=== PATIENT | female | born 1980 | race Caucasian/White ===

== ENCOUNTER 2018-07-14 14:09 | Outpatient (CLI) | payer BC ==
--- NOTE | 2018-07-14 15:55 | RAD ---
TWO VIEW CHEST: Comparison: 01-23-17 Indication: Cough. FINDINGS: Lungs are clear. No effusion or pneumothorax. Cardiac silhouette is normal in size. IMPRESSION: No focal consolidation. POS: [facility]
== END 2018-07-14 14:10 | disposition home or self-care (01) ==
LOC: SCSRAD 14:09
PROVIDERS: ATTEND Family Medicine
DX: J20.9 Acute bronchitis, unspecified (principal)
CPT/HCPCS: 71046

== ENCOUNTER 2018-11-17 15:25 | Outpatient (CLI) | payer BC ==
--- NOTE | 2018-11-17 17:17 | MRI ---
[facility] lumbar spine noncontrast: DATE: 11/17/2018 HISTORY: Intervertebral disc disorder with radiculopathy. Low back pain, x10 years COMPARISON: None FINDINGS: Appropriate T1 marrow signal intensity of the lumbar vertebra. Lumbar spine vertebral body height is maintained. No fracture Type II Modic changes at L4-L5 and L5-S1. No centimeters STIR hyperintensity to suggest vertebral body edema or ligamentous injury Appropriate signal intensity of the visualized solid organs Symmetric signal intensity of the paraspinal muscles Conus medullaris terminates at the upper aspect of L1 T12-L1:No significant central canal stenosis or neural foraminal narrowing L1-2:No significant central canal stenosis or neural foraminal narrowing L2-3:No significant central canal stenosis or neural foraminal narrowing L3-4:Mild loss of disc space height. Minimal central disc bulge. No significant central canal stenosi s. Neural foramina are patent. L4-5:Mild to moderate loss of disc space height. Central/right subclavicular disc protrusion with sli ght superior disc extrusion. Mass effect and partial obscuration of the traversing right L5 nerve ainsley t. No significant mass effect upon the thecal sac or left subarticular zone. Mild to moderate right f oraminal narrowing. Left neural foramen is patent L5-S1: No significant central canal stenosis. Right neural foramen is patent. Moderate left foraminal narrowing. IMPRESSION: 1. Degenerative disc disease at L4-L5 as described above. Mass effect and partial obscuration of the traversing right L5 nerve root secondary to disc material in the right subarticular zone. 2. Degenerative disc disease at L3-L4 without significant central canal stenosis or neural foraminal narrowing.
== END 2018-11-17 15:26 | disposition home or self-care (01) ==
LOC: TBSIIMAG 15:25
PROVIDERS: ATTEND Specialist
DX: M51.16 Intervertebral disc disorders with radiculopathy, lumbar region (principal)
CPT/HCPCS: 72148

== ENCOUNTER 2019-02-09 13:58 | Outpatient (CLI) | payer BC ==
--- NOTE | 2019-02-09 14:21 | RAD ---
LUMBAR SPINE SERIES WITH FLEXION AND EXTENSION 4 VIEWS: Date: 02/09/19 HISTORY: Back pain getting progressively worse. Radiculopathy. FINDINGS: The vertebral bodies are normal in height. There is mild to moderate disc narrowing at L4-5. No spond ylolisthesis or abnormal motion in flexion or extension. IMPRESSION: Moderate disc narrowing at L4-5. POS: [facility]
== END 2019-02-09 13:59 | disposition home or self-care (01) ==
LOC: TBSIIMAG 13:58
PROVIDERS: ATTEND Surgery
DX: M54.16 Radiculopathy, lumbar region (principal); M48.061 Spinal stenosis, lumbar region without neurogenic claudication
CPT/HCPCS: 72110

== ENCOUNTER 2019-02-25 11:58 | Outpatient (CLI) | payer BC ==
--- NOTE | 2019-02-25 15:29 | MMO ---
Bilateral MAMMO Bilat Screen [facility]. CLINICAL HISTORY: Patient is 38 years old and is seen for screening. The patient has the following family history of breast cancer: paternal grandmother, malignant (generic). The patient has no personal history of cancer. VIEWS: The views performed were: bilateral craniocaudal with tomosynthesis; bilateral mediolateral oblique with tomosynthesis; and left exaggerated craniocaudal. FILMS COMPARED: The present examination has been compared to a prior imaging study performed at [facility] on 02/28/2017. MAMMOGRAM FINDINGS: There are scattered fibroglandular densities. There are no suspicious masses, suspicious calcifications, or new areas of architectural distortion. IMPRESSION: THERE IS NO MAMMOGRAPHIC EVIDENCE OF MALIGNANCY. A ROUTINE FOLLOW-UP MAMMOGRAM IN 1 YEAR IS RECOMMENDED. THE RESULTS OF THIS EXAM WERE SENT TO THE PATIENT. ACR BI-RADS Category 1 - Negative MAMMOGRAPHY NOTE: 1. A negative mammogram report should not delay a biopsy if a dominant of clinically suspicious mass is present. 2. Approximately 10% to 15% of breast cancers are not detected by mammography. 3. Adenosis and dense breasts may obscure an underlying neoplasm. Reported by: CECILIO JOHNSON MD Electonically Signed: [id number]
== END 2019-02-25 11:59 | disposition home or self-care (01) ==
LOC: BICMAMMO 11:58
PROVIDERS: ATTEND Family Medicine
DX: Z12.31 Encounter for screening mammogram for malignant neoplasm of breast (principal); Z80.3 Family history of malignant neoplasm of breast
CPT/HCPCS: 77063; 77067

== ENCOUNTER 2019-03-13 06:09 | Day surgery (SDC) | payer BC ==
[2019-03-12 08:20] VITALS: BMI 38.0
[2019-03-13] MEDS ORDERED: Sodium Chloride 0.9% 10 ML ONE (06:25)
[2019-03-13] MEDS ORDERED: Thrombin 5000 UNITS/5 ML VIAL ONE (06:25)
[2019-03-13 06:53] LABS: #Basophils 0.1 thou/uL (0.0-0.2); #Eosinphils 0.1 thou/uL (0.0-0.7); #Lymphocytes 2.9 thou/uL (1.20-3.40); #Monocytes 0.5 thou/uL (0.11-0.59); #Neutrophils 6.1 thou/uL (1.40-6.50); %Basophils 0.7 % (0.0-1.0); %Eosinophils 0.7 % (0.0-10.0); %Lymphocytes 29.9 % (21.0-51.0); %Monocytes 5.7 % (0.0-10.0); %Neutrophils 63.1 % (42.0-75.0); Hemoglobin 14.9 g/dL (12.0-16.0); Mean Corpuscular Hemoglobin 31.1 pg (27.0-31.0); Mean Corpuscular Volume 91.5 fL (78.0-98.0); Mean Platelet Volume 7.3 fL (7.4-10.4); Platelet Count 304 thou/uL (130-400); RBC Distribution Width 11.9 % (11.5-14.5); White Blood Cell (WBC) Count 9.6 thou/uL (4.8-10.8)
[2019-03-13 07:00] LABS: PTT 30.1 SEC (22.9-36.1); Prothrombin Time 12.8 SEC (12.0-14.7)
[2019-03-13] MEDS ORDERED: ceFAZolin Sodium (SDC) 2 GM/100 ML BAG ONE ×2 (07:01→07:24)
[2019-03-13] MEDS ORDERED: Midazolam HCl 2 mg/2 ml Vial ONE (07:02)
[2019-03-13 07:15] LABS: Anion Gap 11 mmol/L (10-20); BUN (Urea Nitrogen) 15 mg/dL (7.0-18.7); Calc. Creatinine Clearance 159 mL/min (70-130); Calcium 9.4 mg/dL (7.8-10.44); Carbon Dioxide 25 mmol/L (22-29); Chloride 105 mmol/L (98-107); Estimated GFR-MDRD 70; Glucose 95 mg/dL (70-105); Potassium 4.4 mmol/L (3.5-5.1); Sodium 137 mmol/L (136-145)
[2019-03-13] MEDS ORDERED: Fentanyl 100 MCG/2 ML VIAL ONE ×4 (07:25→10:29)
[2019-03-13] MEDS ORDERED: Meperidine HCl/PF 25 MG/ML VIAL SLOW IVP PRN (09:50)
[2019-03-13] MEDS ORDERED: Ondansetron HCl/PF 4 MG/2 ML Vial IVP PRN (09:50)
[2019-03-13] MEDS ORDERED: PACU-Morphine 4MG/ML VIAL SLOW IVP PRN (09:50)
[2019-03-13] MEDS ORDERED: Promethazine HCl 25 MG/ML VIAL SLOW IVP PRN (09:50)
[2019-03-13] MEDS ORDERED: Morphine Sulfate 2 MG/ML SYRINGE SLOW IVP PRN (09:50)
[2019-03-13] MEDS ORDERED: Promethazine HCl 25 MG/ML VIAL IM PRN (09:50)
[2019-03-13] MEDS ORDERED: HYDROmorphone 2 MG/ML VIAL SLOW IVP PRN (09:50)
[2019-03-13] MEDS ORDERED: Ketorolac Tromethamine 30 MG/ML VIAL IVP PRN (09:50)
[2019-03-13] MEDS ORDERED: HYDROmorphone 2 MG/ML VIAL ONE (10:11)
[2019-03-13] MEDS ORDERED: Acetaminophen/Codeine 30-300mg Tablet PO PRN ×2 (10:12→19:41)
[2019-03-13] MEDS ORDERED: Mag-Al 1200 mg/1200 mg/30 ML UDCUP PO PRN (10:12)
[2019-03-13] MEDS ORDERED: Acetaminophen 325 MG TAB PO PRN (10:12)
[2019-03-13] MEDS ORDERED: Fleet Enema 133 ML BOT PR PRN (10:12)
[2019-03-13] MEDS ORDERED: Ondansetron PF 4 MG/2 ML Vial IVP PRN (10:12)
[2019-03-13] MEDS ORDERED: Bisacodyl 10 MG SUPP PR PRN (10:12)
[2019-03-13] MEDS ORDERED: Milk Of Magnesia 30 ML UDCUP PO PRN (10:12)
[2019-03-13] MEDS: CEFAZOLIN 2 GM, IV Admixture Fee-Chemo 1 UNITS in Sodium Chloride 0.9% 100 ML IVPB SCH ×2 (12:58→20:05)
[2019-03-13] MEDS ORDERED: Morphine 2 MG/ML SYRINGE SLOW IVP PRN (14:45)
--- NOTE | 2019-03-13 15:33 | OP ---
DATE OF PROCEDURE: 03/13/2019 LOCATION: OR 12. WOUND CLASSIFICATION: Type 1 wound. PATTERN CHART WRITER: Aries Crawford PA-C PREPROCEDURE DIAGNOSES: Lumbar stenosis with low back and right greater than the left lower extremity pain with lumbar disk extrusion. POSTPROCEDURE DIAGNOSES: Lumbar stenosis with low back and right greater than the left lower extremity pain with lumbar disk extrusion. PROCEDURES PERFORMED: 1. L4-L5 laminectomy, partial facetectomy, foraminotomy with right L4-L5 diskectomy. 2. Use of operative microscope for microdissection. DESCRIPTION OF PROCEDURE: After informed consent was obtained from the patient, the patient was brought to the OR. Proper patient, pause, and identification were carried out. She was placed under excellent general endotracheal anesthesia and positioned prone on the OR table. All appropriate points were padded. We identified the L4-L5 dorsal spines and lamina. A linear radha was made over this region. This area was sterilely cleansed, prepared, and draped. Proper patient, pause, and identification were carried out. The wound was then opened with combination of sharp, monopolar, and blunt dissection. The L4-L5 lamina and spinous processes were exposed. Localization film confirmed our area of interest. We then performed L4-L5 laminectomy, partial facetectomy, and foraminotomies with the L4-L5 segments with excellent decompression of common dural tube. Microscope was brought in for microdissection and performed a right L4-L5 diskectomy with excellent decompression of traversing right L5 nerve root. We had excellent decompression again at that point. Copious irrigation occurred throughout as did maximizing hemostasis. The wound was then closed in anatomic layers following sprinkling of vancomycin powder. The patient was then emerged from anesthesia. Job ID: [id number]
[2019-03-13] MEDS ORDERED: Dexamethasone 20 MG/5 ML VIAL ONE (15:52)
[2019-03-13] MEDS ORDERED: PROPOFOL 200 MG/20 ML VIAL ONE (15:52)
[2019-03-13] MEDS ORDERED: Glycopyrrolate 0.2 MG/ML 5 ML SYRINGE ONE (15:52)
[2019-03-13] MEDS ORDERED: Ondansetron PF 4 MG/2 ML Vial ONE (15:52)
[2019-03-13] MEDS ORDERED: Lidocaine 1% PF 5 ML VIAL ONE (15:52)
[2019-03-13] MEDS ORDERED: Rocuronium Bromide 10 MG/ML (10ML VIAL) ONE (15:52)
[2019-03-13] MEDS: tiZANidine HCl 4 MG TAB PO PRN ×2 (16:03→23:52)
[2019-03-13] MEDS: HYDROcodone/Acetaminophen 7.5/325 mg Tablet PO PRN ×2 (17:45→23:54)
[2019-03-13] MEDS: Sodium Chloride 0.9% 1,000 ML IV SCH ×2 (18:28→23:07)
[2019-03-13] MEDS: Gabapentin 100 MG CAP PO SCH (20:06)
[2019-03-13] MEDS: traMADol HCl 50 MG TAB PO PRN (22:17)
[2019-03-14] MEDS: HYDROcodone/Acetaminophen 7.5/325 mg Tablet PO PRN ×5 (04:55→22:27)
[2019-03-14] MEDS: traMADol HCl 50 MG TAB PO PRN (04:55)
[2019-03-14] MEDS ORDERED: HYDROcodone/Acetaminophen 7.5/325 mg Tablet PO PRN (08:47)
[2019-03-14] MEDS: Montelukast Sodium 10 mg Tablet PO SCH (08:56)
[2019-03-14] MEDS: Bupropion 150 MG SR TAB PO SCH (08:56)
[2019-03-14] MEDS: tiZANidine HCl 4 MG TAB PO PRN ×3 (08:57→22:28)
[2019-03-14] MEDS: Gabapentin 100 MG CAP PO SCH ×2 (08:57→20:45)
--- NOTE | 2019-03-14 14:54 | PRG ---
DATE OF SERVICE: 03/14/2019 Ms. Dwyer is postoperative day 1 from lumbar discectomy. She does have a significant incisional pain which we are trying to control but improvement in leg pain. She will mobilize today and likely stay one more night. Job ID: [id number] MTDD
[2019-03-14] MEDS: Sodium Chloride 0.9% 1,000 ML IV SCH (18:30)
[2019-03-15] MEDS: Sodium Chloride 0.9% 1,000 ML IV SCH (01:08)
[2019-03-15] MEDS: tiZANidine HCl 4 MG TAB PO PRN (06:13)
[2019-03-15] MEDS: HYDROcodone/Acetaminophen 7.5/325 mg Tablet PO PRN (06:13)
[2019-03-15 07:38] VITALS: BP 92/61; TEMP 98
[2019-03-15] MEDS: Gabapentin 100 MG CAP PO SCH (08:30)
[2019-03-15] MEDS: Montelukast Sodium 10 mg Tablet PO SCH (08:30)
[2019-03-15] MEDS: Bupropion 150 MG SR TAB PO SCH (08:30)
--- NOTE | 2019-03-16 05:04 | DIS ---
DATE OF ADMISSION: 03/13/2019 DATE OF DISCHARGE: 03/15/2019 DISCHARGE DIAGNOSES: 1. Lumbar stenosis. 2. Radiculopathy. 3. Lumbar herniated disk. HOSPITAL COURSE: Ms. Dwyer was admitted to undergo L4-L5 laminectomy, partial facetectomy, foraminotomy, and right knee diskectomy with Dr. Spann. The patient's surgery was without complication, but she required 2 overnight stays to help with adequate back pain control. She had complete resolution of her bilateral lower extremity symptoms. At the time of discharge, which is today, she had good strength in the bilateral lower extremities and met criteria for discharge. Appropriate patient education and outpatient followup and prescriptions were provided to the patient with the understanding to call the office with questions or concerns. Again, at the time of discharge, the patient and her were pleased with their outcome postoperatively. Job ID: [id number]
--- NOTE | 2019-03-16 08:58 | EKG ---
Test Reason : PREOP Blood Pressure : / mmHG Vent. Rate : 063 BPM Atrial Rate : 063 BPM P-R Int : 132 ms QRS Dur : 086 ms QT Int : 410 ms P-R-T Axes : 061 025 031 degrees QTc Int : 419 ms Normal sinus rhythm with sinus arrhythmia Normal ECG No previous ECGs available Confirmed by DR. Alvaro KIRK ([id number]) on 03/16/2019 8:57:31 AM Referred By: PEDRO Confirmed By:DR. Alvaro KIRK
== END 2019-03-15 10:25 | disposition home or self-care (01) ==
LOC: SDC 06:09 → SURG A 11:14 → SDC 03-15 10:25
PROVIDERS: ATTEND Surgery
PROC: 01NB0ZZ Release Lumbar Nerve, Open Approach (ICD-10-PCS; principal; 2019-03-13)
PROC: 0ST20ZZ Resection of Lumbar Vertebral Disc, Open Approach (ICD-10-PCS; principal; 2019-03-13)
DX: M48.061 Spinal stenosis, lumbar region without neurogenic claudication (principal); M51.16 Intervertebral disc disorders with radiculopathy, lumbar region; Z79.899 Other long term (current) drug therapy
CPT/HCPCS: 36415; 76000; 80048; 85025; 85610; 85730; 93005; 93010; J0131; J0690; J1100; J1170; J2001; J2250; J2270; J2405; J2704; J3010; J3370; J3490

== ENCOUNTER 2019-04-20 09:43 | Emergency (ER) | payer BC ==
[2019-04-20 10:57] LABS: #Eosinphils 0.1 thou/uL (0.0-0.7); #Lymphocytes 2.2 thou/uL (1.20-3.40); #Monocytes 0.4 thou/uL (0.11-0.59); #Neutrophils 3.6 thou/uL (1.40-6.50); %Basophils 0.4 % (0.0-1.0); %Eosinophils 1.1 % (0.0-10.0); %Lymphocytes 34.9 % (21.0-51.0); %Monocytes 6.1 % (0.0-10.0); %Neutrophils 57.5 % (42.0-75.0); Hemoglobin 14.9 g/dL (12.0-16.0); Mean Corpuscular HGB CONC 34.3 g/dL (32.0-36.0); Mean Corpuscular Hemoglobin 31.4 pg (27.0-31.0); Mean Corpuscular Volume 91.8 fL (78.0-98.0); Platelet Count 262 thou/uL (130-400); RBC Distribution Width 11.8 % (11.5-14.5); Red Blood Cell (RBC) Count 4.75 mill/uL (4.20-5.40); White Blood Cell (WBC) Count 6.2 thou/uL (4.8-10.8)
[2019-04-20 11:17] LABS: ALT (SGPT) 25 U/L (8-55); AST (SGOT) 17 U/L (5-34); Albumin 4.5 g/dL (3.5-5.0); Alkaline Phosphatase 74 U/L (40-150); Anion Gap 12 mmol/L (10-20); BUN (Urea Nitrogen) 10 mg/dL (7.0-18.7); Bilirubin, Total 0.3 mg/dL (0.2-1.2); Calc. Creatinine Clearance 0 mL/min (70-130); Calcium 9.6 mg/dL (7.8-10.44); Carbon Dioxide 23 mmol/L (22-29); Chloride 106 mmol/L (98-107); Estimated GFR-MDRD 75; Globulin 2.6 g/dL (2.4-3.5); Glucose 97 mg/dL (70-105); Potassium 4.2 mmol/L (3.5-5.1); Protein, Total 7.1 g/dL (6.0-8.3); Sodium 137 mmol/L (136-145)
--- NOTE | 2019-04-20 17:41 | CON ---
DATE OF CONSULTATION: This is Aries Crawford PA-C dictating a report for Adria Spann MD. This is a 50-minute subsequent patient evaluation, greater than 50% of the exam was spent in counseling and coordinating the patient's care and remainder of the exam was spent in review of patient's medical records and formulation of treatment plan. CHIEF COMPLAINT: Wound drainage. HISTORY OF PRESENT ILLNESS: Ms. Dwyer is a pleasant 38-year-old female, who presents to [facility], well known to our team as she underwent L4-L5 laminectomy with right L4-L5 diskectomy on 03/13/2019. The patient has been doing well in regard to her surgery; however, on Saturday, had a very large gushing of fluid from her incision. Since that time, she has had some superficial wound dehiscence and continued drainage, though nothing significant since that time. She has had no fever or chills. No significant back pain and no leg pain. She denies falls. She has had some serous like drainage from the incision. I did speak with her on Saturday through our answering service and placed her on Keflex and asked her to present to the emergency room should she feel as though her incision was not moving in the right direction. She states that since being on the antibiotics, her drainage has improved and it looks though the incision has been beginning to fill in. Her white blood cell count is normal at 6.2. Her sodium is 137. She has been afebrile while at the ER. PHYSICAL EXAMINATION: The patient is awake, alert, and appropriate. GCS is 15. She has good strength in the bilateral lower extremities. Her incision is covered with a Telfa and when this was removed, there was some fibrinous exudate drainage on the bandage. There is an area of early scab formation, but some fibrinous exudate formation at the middle aspect of the incision roughly 2 cm in length and less than about 5 mm deep. There is some superficial wound dehiscence and it appears as though there may be a suture that is attempting to dissolve, but has not yet fully dissolved. There is no active drainage from the incision. There is no surrounding erythema. There is no swelling. There are no concerning signs of infection. IMPRESSION/DIAGNOSES: 1. Status post L4-L5 laminectomy with right L4-L5 diskectomy on 03/13/[address] Spann. 2. Superficial wound dehiscence. PLAN: At this time, I have asked that the patient continue to keep her incision clean, dry, and covered. I reminded her to also not bend and twist at the waist to allow her incision to heal. It appears as though again that there is no signs of infection, but rather superficial wound dehiscence. The patient will continue with Keflex and follow up with our office next Saturday, sooner should symptoms dictate and she will certainly call us in the meantime. She and her are pleased with this and I have again let her know the normal course of healing of a wound by secondary intent with some superficial wound dehiscence. Again, they will call with questions. Otherwise, the patient is stable for discharge. Job ID: [id number]
== END 2019-04-20 14:46 | disposition home or self-care (01) ==
LOC: ERS 09:43
DX: M96.89 Other intraoperative and postprocedural complications and disorders of the musculoskeletal system (principal); F32.9 Major depressive disorder, single episode, unspecified
CPT/HCPCS: 36415; 80053; 83605; 85025; 87040; 87070; 87205; 87804; 99283

== ENCOUNTER 2019-09-01 15:38 | Outpatient (CLI) | payer BC ==
--- NOTE | 2019-09-01 15:54 | RAD ---
EXAM: Chest 2 views: HISTORY: Persistent cough for 2 months COMPARISON: 07/14/2018 FINDINGS: There is a normal-sized cardiomediastinal silhouette. There is no evidence of consolidation, mass, or pleural effusion. The bones are unremarkable. IMPRESSION: No evidence of acute cardiopulmonary disease
== END 2019-09-01 15:39 | disposition home or self-care (01) ==
LOC: SCSRAD 15:38
PROVIDERS: ATTEND Family Medicine
DX: R05 Cough (principal)
CPT/HCPCS: 71046

== ENCOUNTER 2020-05-10 12:30 | Outpatient (CLI) | payer BC ==
[2020-05-10 14:48] LABS: Cardiac Risk 4.3 (Less than 4.5)
== END 2020-05-10 12:31 | disposition home or self-care (01) ==
LOC: SCSRAD 12:30
PROVIDERS: ATTEND Nurse Practitioner Family
DX: E78.00 Pure hypercholesterolemia, unspecified (principal)
CPT/HCPCS: 36415; 80061

== ENCOUNTER 2020-05-16 10:06 | Outpatient (CLI) | payer BC ==
--- NOTE | 2020-05-16 11:22 | RAD ---
RADIOGRAPH LUMBAR SPINE 3 VIEWS: DATE: 05/16/2020 HISTORY: 39-year-old female with "M 51.17, intervertebral disc disorder with radiculopathy." Severe low back p ain. TECHNIQUE: 3 lateral views in flexion, extension, and neutral. FINDINGS: Prior AP view of 02/09/2019 demonstrates 5 standard lumbar type vertebrae. Vertebral body heights are maintained. Disc space narrowing is mild at L3-4, moderate-severe at L4-5, and moderate at L5-S1. No major spondylolisthesis. No instability between flexion and extension. Somewhat limited range of m otion. IMPRESSION: 1) discogenic degenerative changes at lower levels, especially L4-5. 2) no instability
== END 2020-05-16 10:07 | disposition home or self-care (01) ==
LOC: SCSRAD 10:06
PROVIDERS: ATTEND Family Medicine
DX: M51.17 Intervertebral disc disorders with radiculopathy, lumbosacral region (principal); M47.26 Other spondylosis with radiculopathy, lumbar region
CPT/HCPCS: 72100

== ENCOUNTER 2022-06-23 07:14 | Inpatient (IN) | payer BC ==
[2022-06-23] MEDS ORDERED: Diazepam 10 MG/2 ML SYRINGE ONE (08:12)
[2022-06-23] MEDS ORDERED: Ketorolac Tromethamine 30 MG/ML VIAL ONE (08:13)
[2022-06-23] MEDS ORDERED: Lidocaine 2% PF 100 mg/5 ml Syringe ONE (09:57)
[2022-06-23] MEDS ORDERED: Ondansetron ODT 4 MG TAB PO PRN (12:38)
[2022-06-23] MEDS ORDERED: Acetaminophen 325 MG TAB PO PRN (12:38)
[2022-06-23] MEDS ORDERED: Ondansetron PF 4 MG/2 ML Vial IVP PRN (12:38)
[2022-06-23] MEDS ORDERED: Senokot S 8.6-50 MG TAB PO PRN (12:38)
[2022-06-23 13:07] LABS: #Basophils 0.1 thou/uL (0.0-0.2); #Eosinphils 0.1 thou/uL (0.0-0.7); #Lymphocytes 3.5 thou/uL (1.20-3.40); #Monocytes 0.7 thou/uL (0.11-0.59); #Neutrophils 6.2 thou/uL (1.40-6.50); %Basophils 0.9 % (0.0-1.0); %Eosinophils 0.7 % (0.0-10.0); %Lymphocytes 32.9 % (21.0-51.0); %Monocytes 6.7 % (0.0-10.0); %Neutrophils 58.9 % (42.0-75.0); Hemoglobin 15.3 g/dL (12.0-16.0); Mean Corpuscular HGB CONC 33.1 g/dL (32.0-36.0); Mean Corpuscular Hemoglobin 31.2 pg (27.0-31.0); Mean Corpuscular Volume 94.1 fl (78.0-98.0); Mean Platelet Volume 8.1 fL (7.4-10.4); Platelet Count 290 thou/uL (130-400); RBC Distribution Width 12.5 % (11.5-14.5); White Blood Cell (WBC) Count 10.5 thou/uL (4.8-10.8)
[2022-06-23 13:32] LABS: ALT (SGPT) 26 U/L (8-55); AST (SGOT) 11 U/L (5-34); Alkaline Phosphatase 64 U/L (40-110); Anion Gap 12 mmol/L (10-20); BUN (Urea Nitrogen) 13 mg/dL (7.0-18.7); Bilirubin, Total 0.7 mg/dL (0.2-1.2); Calc. Creatinine Clearance 0 mL/min (70-130); Calcium 9.1 mg/dL (7.8-10.44); Carbon Dioxide 23 mmol/L (22-29); Chloride 106 mmol/L (98-107); Estimated GFR 89; Globulin 2.4 g/dL (2.4-3.5); Glucose 81 mg/dL (70-105); Potassium 3.8 mmol/L (3.5-5.1); Protein, Total 6.4 g/dL (6.0-8.3); Sodium 137 mmol/L (136-145)
[2022-06-23] MEDS ORDERED: methylPREDNISolone Sod Succ/PF 125 MG/2 ML VIAL IVP SCH (13:45)
[2022-06-23] MEDS: Sodium Chloride 0.9% 1,000 ML IV SCH (14:38)
[2022-06-23 14:41] VITALS: BMI 41.1
[2022-06-23] MEDS: Ketorolac Tromethamine 30 MG/ML VIAL IVP SCH ×2 (17:29→23:42)
[2022-06-23] MEDS: Lidocaine 5% Patch TD SCH (20:22)
[2022-06-24] MEDS: Sodium Chloride 0.9% 1,000 ML IV SCH (00:54)
[2022-06-24] MEDS: Ketorolac Tromethamine 30 MG/ML VIAL IVP SCH ×4 (05:18→23:41)
[2022-06-24 07:22] LABS: #Lymphocytes 1.7 thou/uL (1.20-3.40); #Monocytes 0.6 thou/uL (0.11-0.59); #Neutrophils 13.3 thou/uL (1.40-6.50); %Eosinophils 0.1 % (0.0-10.0); %Monocytes 4.1 % (0.0-10.0); %Neutrophils 84.9 % (42.0-75.0); Hemoglobin 14.6 g/dL (12.0-16.0); Mean Corpuscular HGB CONC 32.5 g/dL (32.0-36.0); Mean Corpuscular Hemoglobin 30.6 pg (27.0-31.0); Mean Platelet Volume 8.5 fL (7.4-10.4); Platelet Count 302 thou/uL (130-400); RBC Distribution Width 12.3 % (11.5-14.5); Red Blood Cell (RBC) Count 4.78 mill/uL (4.20-5.40); White Blood Cell (WBC) Count 15.7 thou/uL (4.8-10.8)
[2022-06-24 07:45] LABS: Anion Gap 12 mmol/L (10-20); BUN (Urea Nitrogen) 11 mg/dL (7.0-18.7); Calc. Creatinine Clearance 183 mL/min (70-130); Carbon Dioxide 22 mmol/L (22-29); Chloride 110 mmol/L (98-107); Estimated GFR 92; Glucose 117 mg/dL (70-105); Potassium 4.6 mmol/L (3.5-5.1); Sodium 139 mmol/L (136-145)
[2022-06-24] MEDS ORDERED: Non-Formulary Item 1 EACH (Tizanidine Hcl [Zanaflex] 4 MG Capsule) PO PRN (08:12)
[2022-06-24] MEDS ORDERED: tiZANidine HCl 4 MG TAB PO PRN (08:18)
[2022-06-24] MEDS ORDERED: Gabapentin 100 MG CAP PO SCH (09:00)
[2022-06-24] MEDS ORDERED: Gabapentin 300 MG CAP PO SCH (09:00)
[2022-06-24] MEDS: methylPREDNISolone Sod Succ/PF 125 MG/2 ML VIAL IVP SCH (09:17)
[2022-06-24] MEDS: Montelukast Sodium 10 mg Tablet PO SCH (09:17)
[2022-06-24] MEDS: Lidocaine 5% Patch TD SCH (09:17)
[2022-06-24] MEDS: Bupropion 150 MG SR TAB PO SCH (09:17)
[2022-06-24] MEDS ORDERED: FENTANYL 500 MCG/10 ML VIAL 2,000 MCG in Sodium Chloride 0.9% 60 ML IV PRN (11:19)
[2022-06-24] MEDS ORDERED: diphenhydrAMINE 50 MG/ML VIAL IM PRN (11:19)
[2022-06-24] MEDS ORDERED: diphenhydrAMINE 25 MG CAP PO PRN (11:19)
[2022-06-24] MEDS ORDERED: Promethazine HCl 25 MG/ML VIAL IM PRN (11:19)
[2022-06-24] MEDS ORDERED: Naloxone HCl 0.4 mg/ml Vial IV PRN (11:19)
[2022-06-24] MEDS ORDERED: Zolpidem Tartrate 5 MG TAB PO PRN (11:19)
[2022-06-24] MEDS ORDERED: diphenhydrAMINE 50 MG/ML VIAL IVP PRN (11:19)
[2022-06-24] MEDS ORDERED: Ondansetron PF 4 MG/2 ML Vial IVP PRN (11:19)
[2022-06-24] MEDS ORDERED: Moisturizing Cream (Eucerin) 113 GM JAR TOP PRN (11:20)
[2022-06-24] MEDS ORDERED: Sodium Chloride 0.65% Nasal 44 ML BOT EA NARE PRN (11:20)
[2022-06-24] MEDS ORDERED: Benzonatate 100 MG CAP PO PRN (11:20)
[2022-06-24] MEDS ORDERED: Artificial Tear Sol 15 ML BOT EA EYE PRN (11:20)
[2022-06-24] MEDS ORDERED: Bisacodyl 5 MG TAB PO PRN (11:20)
[2022-06-24] MEDS ORDERED: Communication Order-Pharmacy FS SCH (11:30)
[2022-06-24] MEDS ORDERED: Polyethylene Glycol 3350 17 GM Packet PO SCH (11:45)
[2022-06-24] MEDS: Polyethylene Glycol 3350 17 GM Packet PO SCH (12:57)
[2022-06-24] MEDS: Gabapentin 300 MG CAP PO SCH (12:57)
[2022-06-24] MEDS ORDERED: Amitriptyline HCl 25 MG TAB PO PRN (14:07)
[2022-06-24] MEDS ORDERED: Gabapentin 400 MG CAP PO SCH (21:00)
[2022-06-25] MEDS: Ketorolac Tromethamine 30 MG/ML VIAL IVP SCH ×2 (05:12→11:37)
[2022-06-25 05:18] VITALS: TEMP 97.6
[2022-06-25] MEDS ORDERED: Lidocaine 5% Patch TD SCH (05:30)
[2022-06-25 08:33] VITALS: BP 131/78
[2022-06-25] MEDS: methylPREDNISolone Sod Succ/PF 125 MG/2 ML VIAL IVP SCH (08:53)
[2022-06-25] MEDS: Polyethylene Glycol 3350 17 GM Packet PO SCH (08:54)
[2022-06-25] MEDS: Bupropion 150 MG SR TAB PO SCH (08:54)
[2022-06-25] MEDS: Montelukast Sodium 10 mg Tablet PO SCH (08:54)
[2022-06-25] MEDS: Gabapentin 300 MG CAP PO SCH ×2 (08:54→11:37)
[2022-06-25] MEDS ORDERED: Diazepam 5 MG TAB PO SCH (12:00)
[2022-06-25] MEDS ORDERED: Transdermal Patch Removal TOP SCH (18:00)
== END 2022-06-25 15:09 | disposition home or self-care (01) | DRG 552 ==
LOC: ERS 07:14 → T4-A 12:07 → OBSVTOIN 06-24 11:22
PROVIDERS: ADMIT Family Medicine; ATTEND Family Medicine
PROC: 3E0R33Z Introduction of Anti-inflammatory into Spinal Canal, Percutaneous Approach (ICD-10-PCS; principal; 2022-06-25)
PROC: 3E0R3BZ Introduction of Anesthetic Agent into Spinal Canal, Percutaneous Approach (ICD-10-PCS; 2022-06-25)
DX: M51.17 Intervertebral disc disorders with radiculopathy, lumbosacral region (principal); G89.4 Chronic pain syndrome; M47.26 Other spondylosis with radiculopathy, lumbar region; Z88.1 Allergy status to other antibiotic agents; Z91.018 Allergy to other foods; Z90.710 Acquired absence of both cervix and uterus; Z98.890 Other specified postprocedural states
CPT/HCPCS: 36415; 72148; 80048; 80053; 85025; 96374; 96375; 96376; G0378; J1200; J1885; J2001; J2930; J3010; J3360; J3490; J7050; U0003; U0005

== ENCOUNTER 2022-08-09 07:49 | Observation (INO) | payer BC ==
[2022-08-08 09:08] VITALS: BMI 38.7
[2022-08-09] MEDS ORDERED: Bupivacaine PF 0.5% 30 ML VIAL ONE ×2 (08:36→10:11)
[2022-08-09] MEDS ORDERED: Lidocaine 2% PF 5 ML VIAL ONE (08:36)
[2022-08-09] MEDS ORDERED: Lidocaine 1% MPF 2 ML VIAL ONE (08:36)
[2022-08-09] MEDS ORDERED: PROPOFOL 20 ML ONE (08:36)
[2022-08-09] MEDS ORDERED: Scopolamine 1.5 mg/72 hour Patch ONE (09:07)
[2022-08-09 09:28] LABS: SARS-CoV-2 NAA Rapid Test Not Detected (NotDetected)
[2022-08-09] MEDS ORDERED: Vancomycin 1 GM VIAL ONE (10:11)
[2022-08-09] MEDS ORDERED: Thrombin 5000 UNITS/5 ML VIAL ONE (10:11)
[2022-08-09] MEDS ORDERED: CEFAZOLIN 2 GM VIAL ONE (11:05)
[2022-08-09] MEDS ORDERED: Sodium Chloride 0.9% 100 ML ONE (11:05)
[2022-08-09] MEDS ORDERED: Midazolam HCl 2 mg/2 ml Vial ONE (11:09)
[2022-08-09] MEDS ORDERED: Ketamine 50 MG/ML (10ML VIAL) ONE (11:09)
[2022-08-09] MEDS ORDERED: Glycopyrrolate 0.2 MG/ML 5 ML SYRINGE ONE (11:11)
[2022-08-09] MEDS ORDERED: NEOSTIGMINE 3 MG/3 ML SYR 3 MG/3 ML SYRINGE ONE (11:11)
[2022-08-09] MEDS ORDERED: Ondansetron PF 4 MG/2 ML Vial ONE (11:11)
[2022-08-09] MEDS ORDERED: Rocuronium Bromide 10 MG/ML (10ML VIAL) ONE (11:11)
[2022-08-09] MEDS ORDERED: PROPOFOL 200 MG/20 ML VIAL ONE (11:11)
[2022-08-09] MEDS ORDERED: Lidocaine 1% PF 5 ML VIAL ONE (11:11)
[2022-08-09] MEDS ORDERED: diphenhydrAMINE 50 MG/ML VIAL ONE (11:11)
[2022-08-09] MEDS ORDERED: Dexamethasone 20 MG/5 ML VIAL ONE (11:11)
[2022-08-09] MEDS ORDERED: HYDROmorphone 2 MG/ML VIAL ONE (11:55)
[2022-08-09] MEDS ORDERED: diphenhydrAMINE 25 MG CAP PO PRN (12:06)
[2022-08-09] MEDS ORDERED: Promethazine HCl 25 MG/ML VIAL IM PRN ×2 (12:06)
[2022-08-09] MEDS ORDERED: diphenhydrAMINE 50 MG/ML VIAL IVP PRN (12:06)
[2022-08-09] MEDS ORDERED: diphenhydrAMINE 50 MG/ML VIAL IM PRN (12:06)
[2022-08-09] MEDS ORDERED: Ondansetron PF 4 MG/2 ML Vial IVP PRN (12:06)
[2022-08-09] MEDS ORDERED: HYDROmorphone 10 mg/100 ml CADD IVPB PRN (12:06)
[2022-08-09] MEDS ORDERED: Zolpidem Tartrate 5 MG TAB PO PRN (12:06)
[2022-08-09] MEDS ORDERED: Naloxone HCl 0.4 mg/ml Vial IV PRN (12:06)
[2022-08-09] MEDS ORDERED: HYDROmorphone 2 MG/ML VIAL SLOW IVP PRN (12:06)
[2022-08-09] MEDS ORDERED: Promethazine HCl 25 MG/ML VIAL IVPB PRN (12:06)
[2022-08-09] MEDS ORDERED: HYDROmorphone/PF 10 MG in Sodium Chloride 0.9% 99 ML IVPB PRN ×2 (12:15→13:03)
[2022-08-09] MEDS ORDERED: Communication Order-Pharmacy FS PRN (12:15)
[2022-08-09] MEDS ORDERED: Fentanyl 250 MCG/5 ML VIAL ONE (12:26)
[2022-08-09] MEDS ORDERED: Dexmedetomidine 200 MCG/2 ML VIAL ONE (12:42)
[2022-08-09] MEDS ORDERED: Ketorolac Tromethamine 30 MG/ML VIAL IVP PRN (13:19)
[2022-08-09] MEDS ORDERED: Acetaminophen 325 MG TAB PO PRN (13:19)
[2022-08-09] MEDS ORDERED: Fluticasone Propionate Nasal Spray 16 gm Bottle NASAL PRN (13:23)
[2022-08-09] MEDS: Sodium Chloride 0.9% 1,000 ML IV SCH ×2 (14:40→20:07)
[2022-08-09] MEDS: CEFAZOLIN 2 GM in Sodium Chloride 0.9% 100 ML IVPB SCH (17:57)
[2022-08-09] MEDS: Gabapentin 300 MG CAP PO SCH (20:01)
[2022-08-09] MEDS: tiZANidine HCl 4 MG TAB PO PRN (20:46)
[2022-08-10] MEDS: tiZANidine HCl 4 MG TAB PO PRN (03:00)
[2022-08-10] MEDS: CEFAZOLIN 2 GM in Sodium Chloride 0.9% 100 ML IVPB SCH (03:00)
[2022-08-10 06:18] LABS: Potassium 4.9 mmol/L (3.5-5.1)
[2022-08-10] MEDS ORDERED: HYDROcodone/Acetaminophen 5/325 mg Tablet PO PRN ×3 (08:03→08:25)
[2022-08-10] MEDS ORDERED: Acetaminophen/Codeine 30-300mg Tablet PO PRN (08:04)
[2022-08-10 08:22] VITALS: BP 104/68; TEMP 98.5
[2022-08-10] MEDS ORDERED: traMADol HCl 50 MG TAB PO PRN (08:25)
[2022-08-10] MEDS ORDERED: Ketorolac Tromethamine 10 MG TAB PO PRN (08:38)
[2022-08-10] MEDS ORDERED: Montelukast Sodium 10 mg Tablet PO SCH (09:00)
[2022-08-10] MEDS ORDERED: Bupropion 150 MG SR TAB PO SCH (09:00)
[2022-08-10] MEDS: Gabapentin 300 MG CAP PO SCH (09:43)
== END 2022-08-10 12:35 | disposition home or self-care (01) ==
LOC: SDC 07:49 → SURG B 14:47
PROVIDERS: ADMIT Surgery; ATTEND Surgery
PROC: 0SB40ZZ Excision of Lumbosacral Disc, Open Approach (ICD-10-PCS; principal; 2022-08-09)
PROC: 01NR0ZZ Release Sacral Nerve, Open Approach (ICD-10-PCS; 2022-08-09)
DX: M51.17 Intervertebral disc disorders with radiculopathy, lumbosacral region (principal); Z79.1 Long term (current) use of non-steroidal anti-inflammatories (NSAID); Z79.899 Other long term (current) drug therapy; Z88.1 Allergy status to other antibiotic agents; Z91.018 Allergy to other foods; Z20.822 Contact with and (suspected) exposure to COVID-19
CPT/HCPCS: 36415; 84132; J1100; J1170; J1200; J2001; J2250; J2405; J2704; J3010; J3370; J3490; J7050; S0020; U0002

== ENCOUNTER 2022-12-26 08:32 | Emergency (ER) | payer BC ==
[2022-12-26] MEDS ORDERED: LORazepam 2 MG/ML SYR.(CARPUJECT) ONE ×2 (09:32→10:50)
[2022-12-26 09:41] LABS: #Eosinphils 0.1 thou/uL (0.0-0.7); #Monocytes 0.4 thou/uL (0.11-0.59); #Neutrophils 4.9 thou/uL (1.40-6.50); %Basophils 0.6 % (0.0-1.0); %Eosinophils 0.8 % (0.0-10.0); %Lymphocytes 24.2 % (21.0-51.0); %Monocytes 5.8 % (0.0-10.0); %Neutrophils 68.5 % (42.0-75.0); Hemoglobin 15.2 g/dL (12.0-16.0); Mean Corpuscular HGB CONC 32.8 g/dL (32.0-36.0); Mean Corpuscular Hemoglobin 29.1 pg (27.0-31.0); Mean Corpuscular Volume 88.5 fl (78.0-98.0); Mean Platelet Volume 10.6 fL (7.4-10.4); Platelet Count 303 10x3/uL (130-400); RBC Distribution Width 13.2 % (11.5-14.5); Red Blood Cell (RBC) Count 5.23 mill/uL (4.20-5.40); White Blood Cell (WBC) Count 7.1 10x3/uL (4.8-10.8)
[2022-12-26 10:02] LABS: ALT (SGPT) 29 U/L (8-55); AST (SGOT) 19 U/L (5-34); Albumin 4.6 g/dL (3.5-5.0); Alkaline Phosphatase 78 U/L (40-110); Anion Gap 14 mmol/L (10-20); BUN (Urea Nitrogen) 12 mg/dL (7.0-18.7); Bilirubin, Total 0.5 mg/dL (0.2-1.2); Calc. Creatinine Clearance 0 mL/min (70-130); Calcium 10.2 mg/dL (7.8-10.44); Carbon Dioxide 20 mmol/L (22-29); Chloride 106 mmol/L (98-107); Estimated GFR 86; Glucose 95 mg/dL (70-105); Potassium 4.1 mmol/L (3.5-5.1); Protein, Total 7.6 g/dL (6.0-8.3); Sodium 136 mmol/L (136-145)
[2022-12-26 10:13] LABS: Bilirubin Negative (Negative); Blood, Urine Negative (Negative); Clarity Clear (Clear); Glucose, Urine (Dipstick) Normal (Negative); Ketone, Urine Negative (Negative); Leukocyte Negative Leu/uL (Negative); Nitrite Negative (Negative); Protein, Urine (Dipstick) Negative (Neg-Trace); Specific Gravity, Urine 1.005 (1.002-1.036); Urobilinogen Normal mg/dL (Less than 2)
[2022-12-26] MEDS ORDERED: Magnevist 469MG/ML 20 ML VIAL ONE (10:36)
== END 2022-12-26 14:14 | disposition home or self-care (01) ==
LOC: ERS 08:32
DX: M51.26 Other intervertebral disc displacement, lumbar region (principal); M54.16 Radiculopathy, lumbar region
CPT/HCPCS: 51798; 72158; 80053; 81003; 85025; 85652; 86140; 96374; 96376; A9579; J2060

== ENCOUNTER 2023-03-22 08:24 | Outpatient (CLI) | payer BC | END 2023-03-22 08:25 | disposition home or self-care (01) | LOC: SCSMRI 08:24 | PROVIDERS: ATTEND Specialist | DX: M47.22 Other spondylosis with radiculopathy, cervical region (principal); M48.02 Spinal stenosis, cervical region | CPT/HCPCS: 72141 ==

== ENCOUNTER 2023-04-02 07:59 | Outpatient (CLI) | payer BC ==
[2023-04-02 08:53] LABS: Hematocrit 47.8 % (34.9-44.5); Hemoglobin 15.5 g/dL (12.0-15.5); Mean Corpuscular HGB CONC 32.4 g/dL (32.0-36.0); Mean Corpuscular Hemoglobin 29.8 pg (27.0-33.0); Mean Corpuscular Volume 91.7 fl (81.6-98.3); Mean Platelet Volume 10.2 fl (7.4-10.4); Platelet Count 348 10x3/uL (150-450); RBC Distribution Width 12.8 % (11.5-14.5); Red Blood Cell (RBC) Count 5.21 10x6/uL (3.90-5.03); White Blood Cell (WBC) Count 8.2 10x3/uL (3.5-10.5)
[2023-04-02 09:17] LABS: Anion Gap 18 mmol/L (10-20); BUN (Urea Nitrogen) 13 mg/dL (7.0-18.7); Calc. Creatinine Clearance 0 mL/min (70-130); Calcium 9.8 mg/dL (7.8-10.44); Carbon Dioxide 23 mmol/L (22-29); Chloride 104 mmol/L (98-107); Estimated GFR 72; Glucose 98 mg/dL (70-105); Potassium 4.3 mmol/L (3.5-5.1); Sodium 141 mmol/L (136-145)
[2023-04-02 09:27] LABS: INR-International Normal Ratio 0.9; PTT 28.4 sec (22.0-33.0)
== END 2023-04-02 08:00 | disposition home or self-care (01) ==
LOC: LABBT 07:59
PROVIDERS: ATTEND Surgery
DX: Z01.818 Encounter for other preprocedural examination (principal); M51.16 Intervertebral disc disorders with radiculopathy, lumbar region
CPT/HCPCS: 80048; 85027; 85610; 85730; 93005; 93010

== ENCOUNTER 2023-05-02 09:48 | Outpatient (CLI) | payer BC | END 2023-05-02 09:49 | disposition home or self-care (01) | LOC: SCSRAD 09:48 | PROVIDERS: ATTEND Family Medicine | DX: M19.072 Primary osteoarthritis, left ankle and foot (principal) ==